=== PATIENT | female | born 1945 | race Caucasian/White ===

== ENCOUNTER 2018-09-18 00:44 | Emergency (ER) | payer MEDICARE, OTHER ==
[~2018-09-18] VITALS: Ht 152.4 cm; Wt 57.4 kg
[~2018-09-18 00:44] MED LIST: ALPR0.5T6 PO; AMLO10TA8 PO; AMLO2.5T5 PO; AMLO5TAB10 PO; APIX5TAB PO; ASPI-484 PO; BIOT1TAB2 PO; BUDE0.5A3 IH; BUSP10TA PO; CARV12.5 PO; CARV6.25 PO; CARV6.252 PO; CEPH-350 PO; CHOL2000 PO; CITA20TA6 PO; CLOP75TA PO; CYAN10005 PO; DULO30CA2 PO; FERR325T15 PO; FLUT1DIS5 IH; FURO-81 PO; FURO40TA4 PO; INSU100V13 SQ; INSU100V14 SQ; ISOS30TA4 PO; ISOS60TA2 PO; LANC-426 MC; LATA2.5D3 OP; LEVA1.25 IH; LOSA100T14 PO; LOSA1TAB7 PO; MAGN400T27 PO; METF500T PO; METO25TA4 PO; METR250T PO; MOME220A IH; NITR0.4T SL; PANT40TA5 PO; POTA20TA8 PO; PRAM0.125 PO; PRAM0.255 PO; PRED20TA PO; ROFL500T PO; ROSU10TA PO; SACU1TAB PO; SACU1TAB7 PO; SPIR25TA PO; TICA90TA PO; UMEC1DIS IH
[2018-09-18 00:48] VITALS: BP 156/68
--- NOTE | 2018-09-18 00:48 | NUR ---
HOME MEDICATIONS PT DOES NOT HAVE MEDICATION LIST NOR PILL BOTTLES. ATTEMPT TO REVIEW LIST IN COMPUTER, NEITHER PT NOR SPOUSE ABLE TO RECALL MEDICATIONS.
[2018-09-18] MEDS ORDERED: ZOFRAN IV STA (01:10)
[2018-09-18] MEDS ORDERED: NS 1000ML 1,000 ML STA (01:10)
[2018-09-18] MEDS ORDERED: NS 1000ML 1,000 ML ONE (01:14)
[2018-09-18] MEDS ORDERED: ZOFRAN ONE (01:14)
--- NOTE | 2018-09-18 01:14 | ER.PDOC ---
General Chief Complaint: Nausea,Vomiting,Diarrhea Stated Complaint: VOMITING Time seen by : 01:00 Source: patient Exam Limitations: no limitations History of Present Illness Initial Comments Pt with nausea, vomiting and diarrhea since 8 PM last night Severity/Quality: mild, cramping Abdominal Pain Onset Location: Generalized Abdomen Associated Symptoms (vomiting): freq vomitng Associated Symptoms (diarrhea): copious Allergies: Coded Allergies: prednisone (Verified Allergy, Unknown, 12/30/16) Home Meds Active Scripts Metformin Hcl (GLUCOPHAGE) 500 Mg Tablet, 500 MG PO BID for 30 Days Prov:RODERICK WILLARD MD 10/16/17 Budesonide (PULMICORT) 0.5 Mg/2 Ml Ampul.neb, 0.5 MG IH Q6HR PRN for SHORTNESS OF BREATH for 30 Days Prov:RODERICK WILLARD MD 10/16/17 Alprazolam (ALPRAZOLAM) 0.5 Mg Tablet, 1 MG PO HS PRN for anxiety for 30 Days, TABLET Prov:RODERICK WILLARD MD 10/16/17 Sacubitril/Valsartan (Entresto 49 mg-51 mg Tablet) 1 Each Tablet, 1 EACH PO BID for 30 Days, TABLET Prov:RODERICK WILLARD MD 10/16/17 Levalbuterol Hcl (LEVALBUTEROL CONCENTRATE) 1.25 Mg/0.5 Ml Vial.neb, 1.25 MG IH Q6HR PRN for SHORTNESS OF BREATH for 30 Days Prov:RODERICK WILLARD MD 10/16/17 Spironolactone 25MG (ALDACTONE 25MG) 25 Mg Tablet, 25 MG PO DAILY for 30 Days, TABLET Prov:RODERICK WILLARD MD 09/29/17 Isosorbide Mononitrate (ISOSORBIDE MONONITRATE ER) 30 Mg Tab.er.24h, 60 MG PO DAILY for 30 Days Prov:RODERICK WILLARD MD 09/29/17 Furosemide (LASIX) 20 Mg Tablet, 20 MG PO DAILY for 30 Days Prov:RODERICK WILLARD MD 06/11/17 Insulin Detemir (LEVEMIR) 100 Unit/1 Ml Vial, 30 UNIT SQ HS for 30 Days, VIAL Prov:RODERICK WILLARD MD 5/17/17 Lancets (ACCU-CHEK) 1 Each Each, 1 EACH ACHS for 30 Days, EACH Prov:RODERICK WILLARD MD 12/31/16 Reported Medications Pramipexole Di-Hcl (MIRAPEX) 0.125 Mg Tablet, 0.125 MG PO DAILY24, TABLET 05/18/18 Metoprolol Tartrate 25MG (LOPRESSER 25MG) 25 Mg Tablet, 1 TAB PO BID, #180 TAB 1 Refill 05/18/18 Apixaban (Eliquis) 5 Mg Tablet, 5 MG PO BID, TABLET 05/18/18 Roflumilast (DALIRESP) 500 Mcg Tablet, 1 TAB PO DAILY, #90 TAB 3 Refills 05/18/18 Latanoprost (LATANOPROST) 2.5 Ml Drops, 1 DROP OP HS, #7.5 MILLILITER 3 Refills 02/05/18 Clopidogrel Bisulfate (CLOPIDOGREL) 75 Mg Tablet, 1 TAB PO DAILY, #90 TAB 1 Refill 02/05/18 Citalopram Hydrobromide (CITALOPRAM HBR) 20 Mg Tablet, 1 TAB PO DAILY, #30 TAB 5 Refills 02/05/18 Mometasone Furoate (ASMANEX) 220 Mcg Aer.pow.ba, 220 MCG IH DAILY24 02/05/18 Cyanocobalamin (Vitamin B-12) (VITAMIN B-12) 1,000 Mcg Tablet, 1 TAB PO DAILY, # 30 TAB 2 Refills 12/31/16 Biotin (BIOTIN) 1 Mg Tablet, 1 MG PO TID, TABLET 12/31/16 Cholecalciferol (Vitamin D3) (VITAMIN D) 2,000 Unit Capsule, 4000 UNIT PO DAILY , CAPSULE 12/31/16 Potassium Chloride (KLOR-CON M20) 20 Meq Tab.er.prt, 20 MEQ PO DAILY 12/31/16 Rosuvastatin 10MG (CRESTOR 10MG) 10 Mg Tablet, 10 MG PO HS, TAB 12/30/16 Pantoprazole Sodium (PANTOPRAZOLE SODIUM) 40 Mg Tablet.dr, 40 MG PO DAILY 12/30/16 Nitroglycerin (NITROSTAT) 0.4 Mg Tab.subl, 0.4 MG SL PRN PRN for CHEST PAIN 12/30/16 Latanoprost (LATANOPROST) 2.5 Ml Drops, 1 DROP OP HS, #7.5 MILLILITER 12/30/16 Ferrous Sulfate (FERROUS SULFATE) 325 Mg Tablet, 325 TAB PO DAILY, TAB 12/30/16 Aspirin (ASPIR 81) 81 Mg Tablet.dr, 1 TAB PO DAILY, TAB 12/30/16 Umeclidinium Brm/Vilanterol Tr (Anoro Ellipta 62.5-25 Mcg INH) 1 Each Disk.w.dev , 1 EACH IH DAILY 12/30/16 Vital Signs First Vital Signs Date Time Temp Pulse Resp B/P (MAP) Pulse Ox O2 Delivery O2 Flow Rate FiO2 09/18/18 00:48 98.8 106 18 98.8 09/18/18 00:48 96 Nasal [place] 09/18/18 00:48 156/68 (97) 2.00 Last Vital Signs Date Time Temp Pulse Resp B/P (MAP) Pulse Ox O2 Delivery O2 Flow Rate FiO2 09/18/18 00:48 98.8 106 18 156/68 (97) 96 Nasal [place] 2.00 98.8 Past Medical History Medical History: arrhythmia, cancer, coronary artery disease, cardiac problems , congestive heart failure, COPD, diabetes, emphysema, GERD, high cholesterol, heart attack, hypertension, renal disease Surgical History: cardiac cath, cancer surgery, cholecystectomy, , hysterectomy, renal, stent LMP (females 10-50): hysterectomy Social History Smoking: quit greater than 1 year Alcohol Use: none Drug Use: none Constitutional: see HPI EENTM: no symptoms reported Respiratory: no symptoms reported Cardiovascular: no symptoms reported Gastrointestinal: see HPI Genitourinary: no symptoms reported Musculoskeletal: no symptoms reported Skin: no symptoms reported Psychiatric/Neurological: no symptoms reported Endocrine: no symptoms reported Hematologic/Lymphatic: no symptoms reported Physical Exam General Appearance: No Apparent Distress, WD/WN HEENT: PERRL/EOMI, Normal ENT Inspection, TMs Normal, Pharynx Normal Neck: Non-Tender, Full Range of Motion, Supple, Normal Inspection Respiratory: chest non-tender, lungs clear, normal breath sounds, no respiratory distress, no accessory muscle use Cardiovascular: Normal Peripheral Pulses, Regular Rate, Rhythm, No Edema, No Gallop, No JVD, No Murmur Gastrointestinal: Hyperactive bowel sounds, Soft Back: Normal Inspection, No CVA Tenderness, No Vertebral Tenderness Extremities: Normal Range of Motion, Non-Tender, Normal Inspection, No Pedal Edema, No Calf Tenderness, Normal Capillary Refill, Pelvis Stable Neurologic/Psychiatric: dean of boys II-XII NML as Tested, No Motor/Sensory Deficits, Alert, Normal Mood/Affect, Oriented x 3 Skin: Normal Color, Warm/Dry Lymphatic: No Adenopathy Results/Orders Results/Orders Laboratory Tests Test 09/18/18 01:10 09/18/18 01:20 09/18/18 01:30 Urine Collection Type CCMS Urine Color YELLOW (YELLOW) Urine Appearance CLOUDY (CLEAR) Urine Bilirubin NEGATIVE MG/DL (NEGATIVE) Urine Ketones 15 mg/dL (NEGATIVE) Urine Specific [place] 1.015 (1.005-1.035) Urine pH 6 (5.0-6.0) Urine Protein 100 mg/dL (NEGATIVE) Urine Urobilinogen NORMAL (NEGATIVE) Urine Nitrate NEGATIVE (NEGATIVE) Urine Leukocyte Esterase 500/uL 2+ (NEGATIVE) Urine Blood 50 2+ (NEGATIVE) Urine RBC NONE SEEN RBC/HPF (NONE Urine WBC TNTC WBC/HPF (0-2) Urine Squamous Epithelial Cells MODERATE #/HPF (FEW) Urine Bacteria FEW (NONE SEEN) Urine Other MUCUC 1+ #/HPF Urine Yeast MODERATE Urine Glucose 50 (NEGATIVE) White Blood Count 8.7 10^3/uL (4.5-11.0) Red Blood Count 3.87 10^6/uL (4.00-5.20) Hemoglobin 12.7 g/dL (12.0-15.0) Hematocrit 37.3 % (36.0-46.0) Mean Corpuscular Volume 96.4 fL (78-100) Mean Corpuscular Hemoglobin 32.8 pg (26-34) Mean Corpuscular Hemoglobin Concent 34.0 g/dL (33-37) Red Cell Distribution Width 14.7 % (11.5-14.5) Platelet Count 255 10^3/uL (150-400) Mean Platelet Volume 8.6 fL (7.8-11.0) Neutrophils (%) (Auto) 93.2 % (41.0-85.0) Lymphocytes (%) (Auto) 2.7 % (24.0-44.0) Monocytes (%) (Auto) 2.7 % (5.0-12.0) Neutrophils # (Auto) 8.1 10^3/uL (1.8-7.7) Lymphocytes # (Auto) 0.2 10^3/uL (1.0-4.8) Monocytes # (Auto) 0.2 10^3/uL (0.3-0.8) Absolute Immature Granulocyte (auto 0.06 10^3 u/L (0-2) Eosinophils % 0.6 % (0.0-5.0) Basophils % 0.1 % (0.0-0.2) Basophils # 0.0 10^3/uL (0.0-0.1) Eosinophil Count 0.1 10^3/uL (0.0-0.2) Sodium Level 138 mmol/L (132-145) Potassium Level 3.9 mmol/L (3.6-5.2) Chloride Level 101.0 mmol/L (96-109) Carbon Dioxide Level 28.5 mmol/L (20.0-32) Anion Gap 12.4 Blood Urea Nitrogen 19 mg/dL (7-18) Creatinine 0.90 mg/dL (0.59-1.40) Estimated GFR () 74.7 (>/=60) BUN/Creatinine Ratio 21.0 Glucose Level 238 mg/dL (70-110) Calcium Level 8.8 mg/dL (8.4-10.5) Total Bilirubin 0.6 mg/dL (0.2-1.0) Aspartate Amino Transf (AST/SGOT) 15 U/L (0-35) Alanine Aminotransferase (ALT/SGPT) 17 U/L (12-78) Alkaline Phosphatase 68 U/L (50-136) Troponin I < 0.02 ng/mL (0.00-0.05) Pro-B-Type Natriuretic Peptide 296 pg/mL (0-125) Total Protein 6.7 g/dL (6.4-8.2) Albumin 3.1 g/dL (3.4-5.0) Globulin 3.6 Amylase Level 86 U/L (25-115) Lipase 417 U/L (114-286) Percent Immature Gran (Cell Imm) 0.70 % (0.00-0.50) Differential Total Cells Counted 100 #CELLS Segmented Neutrophils 79 % (31-76) Band Neutrophils 17 % (2-6) Lymphocytes 5 % (25-36) Monocytes 3 % (3-9) Absolute Eosinophils (Manual) 2 % (1-4) Administered Medications Medications (Trade) Dose Ordered Sig/Dayanara Route PRN Reason Start Time Stop Time Status Last Admin Dose Admin Sodium Chloride 1,000 ml @ 500 mls/hr Q2H STAT IV 09/18/18 01:10 09/18/18 03:09 09/18/18 01:17 Ondansetron HCl (Zofran) 4 mg STAT STAT IV 09/18/18 01:10 09/18/18 01:12 DC 09/18/18 01:17 Departure Time of Disposition: 02:36 Disposition: 01 HOME, SELF-CARE Impression: Primary Impression: Nausea & vomiting Additional Impressions: Diarrhea Gastroenteritis UTI (urinary tract infection) Condition: Stable Patient Instructions: Clear Liquid Diet, Yjhs-le-[id number], Nausea and Vomiting, [id number], Viral Gastroenteritis, [id number] Referrals: RHONDA ALVAREZ MD (PCP) PRIMARY CARE PROVIDER Duration or Time Spent with Pa: 20 Problem Qualifiers ZAY SORIA MD Sep 18, 2018 01:14
--- NOTE | 2018-09-18 01:21 | PCM.EKG ---
Test Date: 2018-09-18 Test Time: 01:17:45 Pat Name: KATINA WATERMAN Department: Patient ID: [facility]-[id number] Room: Gender: F Impregnating Helper: [place] : 1945 Requested By: ZAY LOCKWOOD Order Number: [id number] Reading MD: Zay Lockwood Measurements Intervals [place] Rate: 105 P: 78 WI: 148 QRS: 17 QRSD: 130 T: 72 QT: 366 QTc: 483 Interpretive Statements Sinus tachycardia Left bundle branch block Abnormal ECG Electronically Signed On 09-18-2018 2:55:55 SHELL ASSEMBLER by Zay Lockwood Please click the below link to view image of tracing.
[2018-09-18 01:25] LABS: BASOPHIL % 0.1 % (0.0-0.2); EOSINOPHIL # 0.1 10^3/uL (0.0-0.2); EOSINOPHIL % 0.6 % (0.0-5.0); HEMOGLOBIN 12.7 g/dL (12.0-15.0); LYMPHOCYTES # 0.2 10^3/uL (1.0-4.8); LYMPHOCYTES % 2.7 % (24.0-44.0); MEAN CELL HGB 32.8 pg (26-34); MEAN CORP VOLUME 96.4 fL (78-100); MEAN PLATELET VOLUME 8.6 fL (7.8-11.0); MONOCYTES # 0.2 10^3/uL (0.3-0.8); MONOCYTES % 2.7 % (5.0-12.0); NEUTROPHIL # 8.1 10^3/uL (1.8-7.7); NEUTROPHILS % 93.2 % (41.0-85.0); RED CELL DISTRIBUTION WIDTH 14.7 % (11.5-14.5); WHITE BLOOD CELL 8.7 10^3/uL (4.5-11.0)
[2018-09-18 01:43] LABS: CARBON DIOXIDE 28.5 mmol/L (20.0-32)
[2018-09-18 01:44] LABS: CALCIUM 8.8 mg/dL (8.4-10.5)
[2018-09-18 01:45] VITALS: BP 126/66
[2018-09-18 02:00] LABS: BAND NEUTROPHILS 17 % (2-6); EOSINOPHIL 2 % (1-4); LYMPHOCYTE 5 % (25-36); MONOCYTE 3 % (3-9); SEGMENTED NEUTROPHILS 79 % (31-76)
--- NOTE | 2018-09-18 02:03 | NUR ---
RESTROOM PT AMBULATED TO RESTROOM WITH SBA X1 ON PORTABLE OXYGEN AT 2L/NC. PT TOLERATED WELL. ATTEMPT TO COLLECT UA AND STOOL SPECIMEN PER ORDERS
[2018-09-18 02:18] LABS: BILIRUBIN,URINE NEGATIVE (NEGATIVE); UROBILINOGEN,URINE NORMAL (NEGATIVE)
[2018-09-18 02:20] LABS: APPEARANCE,URINE CLOUDY (CLEAR); UA COLOR YELLOW (YELLOW)
[2018-09-18 02:31] LABS: YEAST,URINE MODERATE
[2018-09-18 02:45] VITALS: BP 143/59
[2018-09-18 03:02] VITALS: BP 143/59
== END 2018-09-18 02:50 | disposition home or self-care (01) ==
LOC: ER 00:44
DX: K52.9 Noninfective gastroenteritis and colitis, unspecified (principal); N39.0 Urinary tract infection, site not specified; I50.9 Heart failure, unspecified; J44.9 Chronic obstructive pulmonary disease, unspecified; I25.10 Atherosclerotic heart disease of native coronary artery without angina pectoris; I11.0 Hypertensive heart disease with heart failure; E78.00 Pure hypercholesterolemia, unspecified; E11.9 Type 2 diabetes mellitus without complications; K21.9 Gastro-esophageal reflux disease without esophagitis; Z79.01 Long term (current) use of anticoagulants; Z79.4 Long term (current) use of insulin; Z79.82 Long term (current) use of aspirin; Z79.899 Other long term (current) drug therapy; Z88.8 Allergy status to other drugs, medicaments and biological substances; Z90.49 Acquired absence of other specified parts of digestive tract; Z90.710 Acquired absence of both cervix and uterus; Z87.891 Personal history of nicotine dependence
CPT/HCPCS: 36415; 80053; 81000; 82150; 83690; 83880; 84484; 85025; 87086; 93005; 96361 ×2; 96374; 99284; J2405; J7030

== ENCOUNTER → 2018-10-04 | Outpatient (CLI) | payer MEDICARE, BC, OTHER ==
[2018-10-04 11:02] LABS: HEMOGLOBIN 11.7 g/dL (12.0-15.0); MEAN CELL HGB 31.5 pg (26-34); MEAN CELL HGB CONCENTRATION 32.3 g/dL (33-37); MEAN CORP VOLUME 97.6 fL (78-100); MEAN PLATELET VOLUME 7.9 fL (7.8-11.0)
--- NOTE | 2018-10-04 12:22 | DIREP ---
PROCEDURE:US KIDNEYS-BILAT COMPARISON:[facility], CT, CTA CHEST, 10/14/2017, 08:36 AM. [facility], CT, CT SPINE LUMBAR W/O, 03/12/2017, 03:37 PM. [facility], CT, CT CHEST W/O, 12/15/2017, 10:54 AM. INDICATIONS:N18.3 CHRONIC KIDNEY DISEASE STAGE 2, R94.4 ABN KIDNEY FUNCTION STUDY TECHNIQUE:Ultrasound examination was performed of the kidneys and bladder. FINDINGS: RIGHT KIDNEY:9.8 x 6.3 x 4.4 cm. Cortex: 1.0 cm LEFT KIDNEY:11.0 x 6.4 x 7.1 cm. Cortex: 1.9 cm BLADDER PRE VOID:13.2 x 9.8 x 7.6 cm. Volume: 687.7 ml BLADDER POST VOID:4.3 x 4.5 x 3.5 cm. Volume: 35.0 ml RIGHT KIDNEY: Normal. No hydronephrosis. A 1.7 x 1.6 cm stone is identified in the mid pole. A 3.1 x 2.4 x 2.0 cm cyst is identified in the superior pole. LEFT KIDNEY: Normal. No hydronephrosis. BLADDER:Normal. OTHER:Negative. CONCLUSION: 1. Right renal stone. No hydronephrosis. 2. Simple right renal cyst. Dictated by: RAÚL Physician on 10/04/2018 at 11:36 AM ld
== END | disposition home or self-care (01) ==
LOC: RAD 10:43
PROVIDERS: ATTEND Internal Medicine
DX: N20.0 Calculus of kidney (principal); N28.1 Cyst of kidney, acquired; I13.0 Hypertensive heart and chronic kidney disease with heart failure and stage 1 through stage 4 chronic kidney disease, or unspecified chronic kidney disease; N18.3 Chronic kidney disease, stage 3 (moderate); I50.42 Chronic combined systolic (congestive) and diastolic (congestive) heart failure; R94.4 Abnormal results of kidney function studies
CPT/HCPCS: 36415; 76770; 85027

== ENCOUNTER 2018-10-24 09:41 | Emergency (ER) | payer MEDICARE, OTHER ==
[~2018-10-24] VITALS: Ht 152.4 cm; Wt 53.5 kg
--- NOTE | 2018-10-24 09:45 | NUR ---
ARRIVAL PT ARRIVED AMBULATORY TO ED RM 6. PT C/O COUGHT, CONGESTION AND RUNNY NOSE FOR A WEKK AND A HALF. PT STATES DR. ALVAREZ PLACED HER ON A Z-PACK FOR GREEN SPUTUM. PT STATES SPUTUM IS NOT WHITE AND FOAMY. PT HAS EXTENSIVE HEART HISTORY WELL COPD, DM AND ANXIETY. PT HOOKED UP TO ALL MONITORS.
[2018-10-24 09:58] VITALS: BP 126/95
[2018-10-24] MEDS ORDERED: SOLU-MEDROL IM STA (10:04)
[2018-10-24] MEDS ORDERED: DUONEB 0.5 MG-3 MG/3 ML SOLN IH STA (10:04)
[2018-10-24] MEDS ORDERED: DECADRON IH STA (10:04)
--- NOTE | 2018-10-24 10:04 | ER.PDOC ---
General Chief Complaint: Requesting Medical Care Stated Complaint: COUGH/CONGESTION Time seen by MD: 09:50 Source: patient Exam Limitations: no limitations History of Present Illness Initial Comments Cough, congestion and runny nose for about 10 days, treated by PCP with Zithromax, clear expectoration Timing/Duration: gradual Severity: mild Associated Symptoms: runny nose, productive cough, mild SOB Prior symptoms/Treatment: Similar symptoms previous Allergies: Coded Allergies: prednisone (Verified Allergy, Unknown, 12/30/16) Home Meds Active Scripts Metformin Hcl (GLUCOPHAGE) 500 Mg Tablet, 500 MG PO BID for 30 Days Prov:RODERICK WILLARD MD 10/16/17 Budesonide (PULMICORT) 0.5 Mg/2 Ml Ampul.neb, 0.5 MG IH Q6HR PRN for SHORTNESS OF BREATH for 30 Days Prov:RODERICK WILLARD MD 10/16/17 Alprazolam (ALPRAZOLAM) 0.5 Mg Tablet, 1 MG PO HS PRN for anxiety for 30 Days, TABLET Prov:RODERICK WILLARD MD 10/16/17 Sacubitril/Valsartan (Entresto 49 mg-51 mg Tablet) 1 Each Tablet, 1 EACH PO BID for 30 Days, TABLET Prov:RODERICK WILLARD MD 10/16/17 Levalbuterol Hcl (LEVALBUTEROL CONCENTRATE) 1.25 Mg/0.5 Ml Vial.neb, 1.25 MG IH Q6HR PRN for SHORTNESS OF BREATH for 30 Days Prov:RODERICK WILLARD MD 10/16/17 Spironolactone 25MG (ALDACTONE 25MG) 25 Mg Tablet, 25 MG PO DAILY for 30 Days, TABLET Prov:RODERICK WILLARD MD 09/29/17 Isosorbide Mononitrate (ISOSORBIDE MONONITRATE ER) 30 Mg Tab.er.24h, 60 MG PO DAILY for 30 Days Prov:RODERICK WILLARD MD 09/29/17 Furosemide (LASIX) 20 Mg Tablet, 20 MG PO DAILY for 30 Days Prov:RODERICK WILLARD MD 06/11/17 Insulin Detemir (LEVEMIR) 100 Unit/1 Ml Vial, 30 UNIT SQ HS for 30 Days, VIAL Prov:RODERICK WILLARD MD 12/31/16 Lancets (ACCU-CHEK) 1 Each Each, 1 EACH [facility] for 30 Days, EACH Prov:RODERICK WILLARD MD 12/31/16 Reported Medications Pramipexole Di-Hcl (MIRAPEX) 0.125 Mg Tablet, 0.125 MG PO DAILY24, TABLET 05/18/18 Metoprolol Tartrate 25MG (LOPRESSER 25MG) 25 Mg Tablet, 1 TAB PO BID, #180 TAB 1 Refill 05/18/18 Apixaban (Eliquis) 5 Mg Tablet, 5 MG PO BID, TABLET 05/18/18 Roflumilast (DALIRESP) 500 Mcg Tablet, 1 TAB PO DAILY, #90 TAB 3 Refills 05/18/18 Latanoprost (LATANOPROST) 2.5 Ml Drops, 1 DROP OP HS, #7.5 MILLILITER 3 Refills 02/05/18 Clopidogrel Bisulfate (CLOPIDOGREL) 75 Mg Tablet, 1 TAB PO DAILY, #90 TAB 1 Refill 02/05/18 Citalopram Hydrobromide (CITALOPRAM HBR) 20 Mg Tablet, 1 TAB PO DAILY, #30 TAB 5 Refills 02/05/18 Mometasone Furoate (ASMANEX) 220 Mcg Aer.pow.ba, 220 MCG IH DAILY24 02/05/18 Cyanocobalamin (Vitamin B-12) (VITAMIN B-12) 1,000 Mcg Tablet, 1 TAB PO DAILY, # 30 TAB 2 Refills 12/31/16 Biotin (BIOTIN) 1 Mg Tablet, 1 MG PO TID, TABLET 12/31/16 Cholecalciferol (Vitamin D3) (VITAMIN D) 2,000 Unit Capsule, 4000 UNIT PO DAILY , CAPSULE 12/31/16 Potassium Chloride (KLOR-CON M20) 20 Meq Tab.er.prt, 20 MEQ PO DAILY 12/31/16 Rosuvastatin 10MG (CRESTOR 10MG) 10 Mg Tablet, 10 MG PO HS, TAB 12/30/16 Pantoprazole Sodium (PANTOPRAZOLE SODIUM) 40 Mg Tablet.dr, 40 MG PO DAILY 12/30/16 Nitroglycerin (NITROSTAT) 0.4 Mg Tab.subl, 0.4 MG SL PRN PRN for CHEST PAIN 12/30/16 Latanoprost (LATANOPROST) 2.5 Ml Drops, 1 DROP OP HS, #7.5 MILLILITER 12/30/16 Ferrous Sulfate (FERROUS SULFATE) 325 Mg Tablet, 325 TAB PO DAILY, TAB 12/30/16 Aspirin (ASPIR 81) 81 Mg Tablet.dr, 1 TAB PO DAILY, TAB 12/30/16 Umeclidinium Brm/Vilanterol Tr (Anoro Ellipta 62.5-25 Mcg INH) 1 Each Disk.w.dev , 1 EACH IH DAILY 12/30/16 Constitutional: see HPI EENTM: see HPI Respiratory: see HPI Cardiovascular: no symptoms reported Gastrointestinal: no symptoms reported Genitourinary: no symptoms reported Musculoskeletal: no symptoms reported Skin: no symptoms reported Psychiatric/Neurological: no symptoms reported Endocrine: no symptoms reported Hematologic/Lymphatic: no symptoms reported Past Medical History Surgical History: cardiac cath, cancer surgery, cholecystectomy, , hysterectomy, renal, stent Social History Drug Use: none Physical Exam General Appearance: alert, no distress Eye: eyes nml inspection, lids & conjunct. nml, PERRL, no nystagmus Ear: ear nml Nose: rhinorrhea, mucosal edema Throat: pharynx nml, airway nml Neck: nml inspection, supple Respiratory: no resp.distress, rhonchi (scattered) Abdomen: non-tender, no organomegaly CVS: reg rate & rhythm, heart sounds nml Skin: color nml, no rash, warm/dry Extremities: non-tender, nml ROM, no pedal edema NEURO/PSYCH: oriented x 3, CN's nml as tested, motor nml, sensation nml, mood/ affect nml Results/Orders Results/Orders Laboratory Tests Test 10/24/18 10:10 10/24/18 10:15 White Blood Count 7.0 10^3/uL (4.5-11.0) Red Blood Count 3.88 10^6/uL (4.00-5.20) Hemoglobin 12.5 g/dL (12.0-15.0) Hematocrit 37.0 % (36.0-46.0) Mean Corpuscular Volume 95.4 fL (78-100) Mean Corpuscular Hemoglobin 32.2 pg (26-34) Mean Corpuscular Hemoglobin Concent 33.8 g/dL (33-37) Red Cell Distribution Width 15.4 % (11.5-14.5) Platelet Count 329 10^3/uL (150-400) Mean Platelet Volume 8.4 fL (7.8-11.0) Neutrophils (%) (Auto) 73.9 % (41.0-85.0) Lymphocytes (%) (Auto) 13.2 % (24.0-44.0) Monocytes (%) (Auto) 11.1 % (5.0-12.0) Neutrophils # (Auto) 5.1 10^3/uL (1.8-7.7) Lymphocytes # (Auto) 0.9 10^3/uL (1.0-4.8) Monocytes # (Auto) 0.8 10^3/uL (0.3-0.8) Absolute Immature Granulocyte (auto 0.03 10^3 u/L (0-2) Eosinophils % 1.0 % (0.0-5.0) Basophils % 0.4 % (0.0-0.2) Basophils # 0.0 10^3/uL (0.0-0.1) Eosinophil Count 0.1 10^3/uL (0.0-0.2) Prothrombin Time 10.7 SEC (9.8-11.9) Prothrombin Time INR (Non-Therap) 1.1 Activated Partial Thromboplast Time 29.2 SEC (24.67-30.72) Sodium Level 140 mmol/L (132-145) Potassium Level 4.3 mmol/L (3.6-5.2) Chloride Level 101.0 mmol/L (96-109) Carbon Dioxide Level 26.4 mmol/L (20.0-32) Anion Gap 16.9 Blood Urea Nitrogen 10 mg/dL (7-18) Creatinine 0.87 mg/dL (0.59-1.40) Estimated GFR () 77.7 (>/=60) BUN/Creatinine Ratio 11.0 Glucose Level 143 mg/dL (70-110) Calcium Level 9.9 mg/dL (8.4-10.5) Total Bilirubin 0.5 mg/dL (0.2-1.0) Aspartate Amino Transf (AST/SGOT) 15 U/L (0-35) Alanine Aminotransferase (ALT/SGPT) 17 U/L (12-78) Alkaline Phosphatase 66 U/L (50-136) Total Creatine Kinase 23 U/L (26-192) Troponin I < 0.02 ng/mL (0.00-0.05) Pro-B-Type Natriuretic Peptide 171 pg/mL (0-125) Total Protein 7.3 g/dL (6.4-8.2) Albumin 3.4 g/dL (3.4-5.0) Globulin 3.9 Percent Immature Gran (Cell Imm) 0.40 % (0.00-0.50) Influenza Type A Antigen NEGATIVE (NEG) Influenza B Immunofluorescence NEGATIVE (NEG) Group A Streptococcus Screen NEGATIVE (NEGATIVE) Administered Medications Medications (Trade) Dose Ordered Sig/Dayanara Route PRN Reason Start Time Stop Time Status Last Admin Dose Admin Albuterol/ Ipratropium (Duoneb 0.5 Mg-3 Mg/3 ml Soln) 3 ml STAT STAT IH 10/24/18 10:04 10/24/18 10:08 DC 10/24/18 10:25 Dexamethasone Sodium Phosphate (Decadron) 4 mg STAT STAT IH 10/24/18 10:04 10/24/18 10:08 DC 10/24/18 10:25 Methylprednisolone Sodium Succinate (Solu-Medrol) 125 mg STAT STAT IM 10/24/18 10:04 10/24/18 10:08 DC 10/24/18 10:34 Departure Time of Disposition: 10:56 Disposition: 01 HOME, SELF-CARE Impression: Primary Impression: COPD exacerbation Condition: Stable Patient Instructions: Chronic Obstructive Pulmonary Disease Exacerbation, Easy- to-Read Referrals: RHONDA ALVAREZ MD (PCP) PRIMARY CARE PROVIDER Duration or Time Spent with Pa: ZAY HITCHCOCK MD Oct 24, 2018 10:04
[2018-10-24] MEDS ORDERED: SOLU-MEDROL ONE (10:10)
[2018-10-24] MEDS ORDERED: DECADRON ONE (10:16)
[2018-10-24 10:19] LABS: BASOPHIL % 0.4 % (0.0-0.2); EOSINOPHIL # 0.1 10^3/uL (0.0-0.2); HEMOGLOBIN 12.5 g/dL (12.0-15.0); LYMPHOCYTES # 0.9 10^3/uL (1.0-4.8); LYMPHOCYTES % 13.2 % (24.0-44.0); MEAN CELL HGB 32.2 pg (26-34); MEAN CELL HGB CONCENTRATION 33.8 g/dL (33-37); MEAN CORP VOLUME 95.4 fL (78-100); MEAN PLATELET VOLUME 8.4 fL (7.8-11.0); MONOCYTES # 0.8 10^3/uL (0.3-0.8); MONOCYTES % 11.1 % (5.0-12.0); NEUTROPHIL # 5.1 10^3/uL (1.8-7.7); NEUTROPHILS % 73.9 % (41.0-85.0); RED CELL DISTRIBUTION WIDTH 15.4 % (11.5-14.5)
[2018-10-24] MEDS ORDERED: DUONEB 0.5 MG-3 MG/3 ML SOLN IH ONE (10:20)
--- NOTE | 2018-10-24 10:22 | PCM.EKG ---
[facility] Test Date: 2018-10-24 Test Time: 10:19:31 Pat Name: KATINA WATERMAN Department: [id number] Room: Gender: F Dental Billing Specialist: ANA LUISA : 1945 Requested By: VINCENT LOCKWOOD Order Number: [id number] Reading MD: Vincent Lockwood Measurements Intervals [place] Rate: 66 P: 74 PA: 140 QRS: 17 QRSD: 138 T: 26 QT: 432 QTc: 452 Interpretive Statements Normal sinus rhythm Left bundle branch block Abnormal ECG Compared to ECG 09/18/2018 01:17:45 Sinus tachycardia no longer present Electronically Signed On 10-24-2018 13:04:29 CDT by Vincent Lockwood Please click the below link to view image of tracing.
[2018-10-24 10:40] LABS: STREP SCREEN NEGATIVE (NEGATIVE)
[2018-10-24 10:43] LABS: ALANINE AMINOTRANSFERASE(ML) 17 U/L (12-78); ALKALINE PHOSPHATASE 66 U/L (50-136); ASPARTATE AMINO TRANSFERASE 15 U/L (0-35); CALCIUM 9.9 mg/dL (8.4-10.5); CARBON DIOXIDE 26.4 mmol/L (20.0-32); GLUCOSE 143 mg/dL (70-110)
--- NOTE | 2018-10-24 10:44 | DIREP ---
PROCEDURE:CHEST 1 VIEW COMPARISON:[facility], CR, XRAY CHEST SINGLE VW, 05/17/2018, 10:56 PM. INDICATIONS:Cough, congestion FINDINGS: LUNGS/PLEURA:No significant pulmonary parenchymal abnormalities. No effusions. VASCULATURE:Normal. Unremarkable pulmonary vasculature. CARDIAC:Normal. No cardiac silhouette abnormality or cardiomegaly. MEDIASTINUM:Atherosclerotic aorta with no visible aneurysm. BONES:Normal. No fracture or visible bony lesion. OTHER:Negative. CONCLUSION:No acute disease. Dictated by: Florencio Watkins MD on 10/24/2018 at 10:43 AM
[2018-10-24 11:09] VITALS: BP 121/60
[2018-10-24 11:10] VITALS: BP 126/60
== END 2018-10-24 11:10 | disposition home or self-care (01) ==
LOC: ER 09:41
DX: J44.1 Chronic obstructive pulmonary disease with (acute) exacerbation (principal); Z79.01 Long term (current) use of anticoagulants; Z79.4 Long term (current) use of insulin; Z79.82 Long term (current) use of aspirin; Z79.899 Other long term (current) drug therapy; Z88.8 Allergy status to other drugs, medicaments and biological substances; Z90.49 Acquired absence of other specified parts of digestive tract; Z90.710 Acquired absence of both cervix and uterus
CPT/HCPCS: 36415; 71045; 80053; 82550; 83880; 84484; 85025; 85610; 85730; 87070; 87804 ×2; 87880; 93005; 94640; 96372; 99284; J1100; J2930; J7620

== ENCOUNTER 2018-12-02 17:35 | Emergency (ER) | payer MEDICARE, BC ==
[~2018-12-02] VITALS: Ht 152.4 cm; Wt 55.8 kg
[~2018-12-02 17:35] MED LIST changes: -ROSU10TA PO; +ROSU10TA2 PO
--- NOTE | 2018-12-02 17:42 | NUR ---
ARRIVAL PT ARRIVED AMBULATORY TO ER 2 C/O "IRREGULAR HEARTBEAT". PT REFUSED WHEELCHAIR TRANSPORT. PT STATES HAD WATCHMAN PROCEDURE LAST WEEK IN [place]. PT STATES "I FEEL LIKE MY HEARTBEAT IS IRREGULAR". PT STATES CALLED DR GARCIA'S OFFICE AND WAS TOLD TO COME TO ER FOR EKG AND TO BE EVALUATED. PT PLACED ON SKIVER HAND. NO ACUTE DISTRESS NOTED. EDP NOTIFIED OF PT ARRIVAL.
[2018-12-02] MEDS ORDERED: DECADRON IH STA (17:54)
[2018-12-02] MEDS ORDERED: DUONEB 0.5 MG-3 MG/3 ML SOLN IH STA (17:54)
[2018-12-02 17:55] VITALS: BP 154/69
--- NOTE | 2018-12-02 18:03 | PCM.EKG ---
[facility] Test Date: 2018-12-02 Test Time: 18:01:20 Pat Name: KATINA WATERMAN [facility]: [id number] Room: Gender: F Card Player: : 1945 Requested By: TUAN URBIO Order Number: [id number] Reading MD: Tuan Rubio Measurements Intervals [place] Rate: 70 P: 58 MO: 136 QRS: -9 QRSD: 128 T: 64 QT: 426 QTc: 460 Interpretive Statements Sinus rhythm with fusion complexes Left bundle branch block Abnormal ECG Compared to ECG 10/24/2018 10:19:31 Fusion complex(es) now present Electronically Signed On 12-02-2018 18:17:20 CDT by Tuan Rubio Please click the below link to view image of tracing.
[2018-12-02 18:12] LABS: BASOPHIL % 0.3 % (0.0-0.2); EOSINOPHIL # 0.1 10^3/uL (0.0-0.2); EOSINOPHIL % 0.8 % (0.0-5.0); HEMOGLOBIN 11.5 g/dL (12.0-15.0); LYMPHOCYTES # 2.2 10^3/uL (1.0-4.8); LYMPHOCYTES % 29.6 % (24.0-44.0); MEAN CELL HGB CONCENTRATION 33.4 g/dL (33-37); MEAN CORP VOLUME 95.8 fL (78-100); MEAN PLATELET VOLUME 8.5 fL (7.8-11.0); MONOCYTES # 0.7 10^3/uL (0.3-0.8); MONOCYTES % 8.9 % (5.0-12.0); NEUTROPHIL # 4.5 10^3/uL (1.8-7.7); NEUTROPHILS % 60.1 % (41.0-85.0); RED CELL DISTRIBUTION WIDTH 15.4 % (11.5-14.5); WHITE BLOOD CELL 7.5 10^3/uL (4.5-11.0)
--- NOTE | 2018-12-02 18:19 | ER.PDOC ---
General Chief Complaint: Palpitations Stated Complaint: IRREGULAR HEARTBEAT/dyspnea,cough Time seen by MD: 19:00 Source: patient Exam Limitations: no limitations History of Present Illness Timing/Duration: 24 hours Severity: mild Activities at Onset: activity/exertion Prior Episodes/Possible Cause: occasional episodes Modifying Factors: improves with activity, improves with albuterol inhaler, improves with coughing, improves with rest Associated Symptoms: cough, lightheadedness, weakness, wheezing Prior symptoms/Treatment: Similar symptoms previous, Recenly Seen, Treated by Doctor Allergies: Coded Allergies: prednisone (Verified Allergy, Unknown, 12/30/16) Home Meds Active Scripts Metformin Hcl (GLUCOPHAGE) 500 Mg Tablet, 500 MG PO BID for 30 Days Prov:RODERICK WILLARD MD 10/16/17 Budesonide (PULMICORT) 0.5 Mg/2 Ml Ampul.neb, 0.5 MG IH Q6HR PRN for SHORTNESS OF BREATH for 30 Days Prov:RODERICK WILLARD MD 10/16/17 Alprazolam (ALPRAZOLAM) 0.5 Mg Tablet, 1 MG PO HS PRN for anxiety for 30 Days, TABLET Prov:RODERICK WILLARD MD 10/16/17 Sacubitril/Valsartan (Entresto 49 mg-51 mg Tablet) 1 Each Tablet, 1 EACH PO BID for 30 Days, TABLET Prov:RODERICK WILLARD MD 10/16/17 Levalbuterol Hcl (LEVALBUTEROL CONCENTRATE) 1.25 Mg/0.5 Ml Vial.neb, 1.25 MG IH Q6HR PRN for SHORTNESS OF BREATH for 30 Days Prov:RODERICK WILLARD MD 10/16/17 Spironolactone 25MG (ALDACTONE 25MG) 25 Mg Tablet, 25 MG PO DAILY for 30 Days, TABLET Prov:RODERICK WILLARD MD 09/29/17 Isosorbide Mononitrate (ISOSORBIDE MONONITRATE ER) 30 Mg Tab.er.24h, 60 MG PO DAILY for 30 Days Prov:RODERICK WILLARD MD 09/29/17 Furosemide (LASIX) 20 Mg Tablet, 20 MG PO DAILY for 30 Days Prov:RODERICK WILLARD MD 06/11/17 Insulin Detemir (LEVEMIR) 100 Unit/1 Ml Vial, 30 UNIT SQ HS for 30 Days, VIAL Prov:RODERICK WILLARD MD 12/31/16 Lancets (ACCU-CHEK) 1 Each Each, 1 EACH ACHS for 30 Days, EACH Prov:RODERICK WILLARD MD 12/31/16 Reported Medications Pramipexole Di-Hcl (MIRAPEX) 0.125 Mg Tablet, 0.125 MG PO DAILY24, TABLET 05/18/18 Metoprolol Tartrate 25MG (LOPRESSER 25MG) 25 Mg Tablet, 1 TAB PO BID, #180 TAB 1 Refill 05/18/18 Apixaban (Eliquis) 5 Mg Tablet, 5 MG PO BID, TABLET 05/18/18 Roflumilast (DALIRESP) 500 Mcg Tablet, 1 TAB PO DAILY, #90 TAB 3 Refills 05/18/18 Latanoprost (LATANOPROST) 2.5 Ml Drops, 1 DROP OP HS, #7.5 MILLILITER 3 Refills 02/05/18 Clopidogrel Bisulfate (CLOPIDOGREL) 75 Mg Tablet, 1 TAB PO DAILY, #90 TAB 1 Refill 02/05/18 Citalopram Hydrobromide (CITALOPRAM HBR) 20 Mg Tablet, 1 TAB PO DAILY, #30 TAB 5 Refills 02/05/18 Mometasone Furoate (ASMANEX) 220 Mcg Aer.pow.ba, 220 MCG IH DAILY24 02/05/18 Cyanocobalamin (Vitamin B-12) (VITAMIN B-12) 1,000 Mcg Tablet, 1 TAB PO DAILY, # 30 TAB 2 Refills 12/31/16 Biotin (BIOTIN) 1 Mg Tablet, 1 MG PO TID, TABLET 12/31/16 Cholecalciferol (Vitamin D3) (VITAMIN D) 2,000 Unit Capsule, 4000 UNIT PO DAILY , CAPSULE 12/31/16 Potassium Chloride (KLOR-CON M20) 20 Meq Tab.er.prt, 20 MEQ PO DAILY 12/31/16 Rosuvastatin 10MG (CRESTOR 10MG) 10 Mg Tablet, 10 MG PO HS, TAB 12/30/16 Pantoprazole Sodium (PANTOPRAZOLE SODIUM) 40 Mg Tablet.dr, 40 MG PO DAILY 12/30/16 Nitroglycerin (NITROSTAT) 0.4 Mg Tab.subl, 0.4 MG SL PRN PRN for CHEST PAIN 12/30/16 Latanoprost (LATANOPROST) 2.5 Ml Drops, 1 DROP OP HS, #7.5 MILLILITER 12/30/16 Ferrous Sulfate (FERROUS SULFATE) 325 Mg Tablet, 325 TAB PO DAILY, TAB 12/30/16 Aspirin (ASPIR 81) 81 Mg Tablet.dr, 1 TAB PO DAILY, TAB 12/30/16 Umeclidinium Brm/Vilanterol Tr (Anoro Ellipta 62.5-25 Mcg INH) 1 Each Disk.w.dev , 1 EACH IH DAILY 12/30/16 Past Medical History Medical History: arrhythmia, cancer, cardiac problems, congestive heart failure , COPD, diabetes Surgical History: cardiac cath, cholecystectomy, , hysterectomy, stent , other LMP (females 10-50): postmenopause Social History Smoking: non-smoker, quit greater than 1 year Alcohol Use: none Drug Use: none Reviewed Nursing Reviewed: Vital Signs, Abn. Noted Review of Systems All Other Systems: Reviewed and Negative Physical Exam General Appearance: No Apparent Distress, WD/WN HEENT: PERRL/EOMI, Normal ENT Inspection, TMs Normal, Pharynx Normal Neck: Non-Tender, Full Range of Motion, Supple, Normal Inspection Respiratory: chest non-tender, lungs clear, normal breath sounds, no respiratory distress, no accessory muscle use Cardiovascular: Normal Peripheral Pulses, Regular Rate, Rhythm, No Edema, No Gallop, No JVD, No Murmur Gastrointestinal: Normal Bowel Sounds, No Organomegaly, No Pulsatile Mass, Non Tender, Soft Extremities: Normal Range of Motion, Non-Tender, Normal Inspection, No Pedal Edema, No Calf Tenderness, Normal Capillary Refill Neurologic/Psychiatric: batch dumper II-XII NML as Tested, No Motor/Sensory Deficits, Alert, Normal Mood/Affect, Oriented x 3 Skin: Normal Color, Warm/Dry Lymphatic: No Adenopathy Results/Orders Results/Orders Orders - LAVON BETH MD Cbc With Auto Diff (12/02/18 17:52) Comprehensive Metabolic Panel (12/02/18 17:52) Creatine Kinase (12/02/18 17:52) Troponin I (12/02/18 17:52) Probnp B-Type Silverware Buffing Machine Operator (12/02/18 17:52) PT (12/02/18 17:52) Partial Thromboplastin Time. (4/18/19 17:52) Helicobacter Pylori (12/02/18 17:52) D-Dimer (12/02/18 17:52) Ekg-Routine (12/02/18 17:52) Xr Chest 2v (12/02/18 17:52) Ipratropium/Albuterol Sulfate (Duoneb 0. (12/02/18 17:54) Dexamethasone Sod Phosphate (Decadron) (12/02/18 17:54) Ipratropium/Albuterol Sulfate (Duoneb 0. (12/02/18 18:27) Dexamethasone Sod Phosphate (Decadron) (12/02/18 18:27) Vital Signs Date Time Temp Pulse Resp B/P (MAP) Pulse Ox O2 Delivery O2 Flow Rate FiO2 12/02/18 18:33 66 18 93 12/02/18 17:55 97.9 67 17 154/69 (97) 95 Room Air 97.9 12/02/18 17:42 97.9 67 17 97.9 12/02/18 17:42 97.9 67 17 95 Room Air 97.9 10/24/18 11:10 80 Administered Medications Medications (Trade) Dose Ordered Sig/Daynaara Route PRN Reason Start Time Stop Time Status Last Admin Dose Admin Albuterol/ Ipratropium (Duoneb 0.5 Mg-3 Mg/3 ml Soln) 3 ml STAT STAT IH 12/02/18 17:54 12/02/18 17:55 DC 12/02/18 18:38 3 ML Dexamethasone Sodium Phosphate (Decadron) 4 mg STAT STAT IH 12/02/18 17:54 12/02/18 17:55 DC 12/02/18 18:38 4 MG Laboratory Tests Test 12/02/18 18:02 White Blood Count 7.5 10^3/uL (4.5-11.0) Red Blood Count 3.59 10^6/uL (4.00-5.20) L Hemoglobin 11.5 g/dL (12.0-15.0) L Hematocrit 34.4 % (36.0-46.0) L Mean Corpuscular Volume 95.8 fL (78-100) Mean Corpuscular Hemoglobin 32.0 pg (26-34) Mean Corpuscular Hemoglobin Concent 33.4 g/dL (33-37) Red Cell Distribution Width 15.4 % (11.5-14.5) H Platelet Count 295 10^3/uL (150-400) Mean Platelet Volume 8.5 fL (7.8-11.0) Neutrophils (%) (Auto) 60.1 % (41.0-85.0) Lymphocytes (%) (Auto) 29.6 % (24.0-44.0) Monocytes (%) (Auto) 8.9 % (5.0-12.0) Neutrophils # (Auto) 4.5 10^3/uL (1.8-7.7) Lymphocytes # (Auto) 2.2 10^3/uL (1.0-4.8) Monocytes # (Auto) 0.7 10^3/uL (0.3-0.8) Absolute Immature Granulocyte (auto 0.02 10^3 u/L (0-2) Eosinophils % 0.8 % (0.0-5.0) Basophils % 0.3 % (0.0-0.2) H Basophils # 0.0 10^3/uL (0.0-0.1) Eosinophil Count 0.1 10^3/uL (0.0-0.2) Prothrombin Time 10.4 SEC (9.8-11.9) Prothrombin Time INR (Non-Therap) 1.0 PTT 28.7 SEC (24.67-30.72) D-Dimer 0.45 mg/L (0.19-0.49) Sodium Level 139 mmol/L (132-145) Potassium Level 3.9 mmol/L (3.6-5.2) Chloride Level 102.0 mmol/L (96-109) Carbon Dioxide Level 27.8 mmol/L (20.0-32) Anion Gap 13.1 Blood Urea Nitrogen 15 mg/dL (7-18) Creatinine 0.96 mg/dL (0.59-1.40) Estimated GFR () 69.3 (>/=60) BUN/Creatinine Ratio 15.0 Glucose Level 97 mg/dL (70-110) Calcium Level 9.2 mg/dL (8.4-10.5) Total Bilirubin 0.3 mg/dL (0.2-1.0) Aspartate Amino Transferase (AST) 10 U/L (0-35) Alanine Aminotransferase (ALT) 13 U/L (12-78) Alkaline Phosphatase 55 U/L (50-136) Total Creatine Kinase 26 U/L (26-192) Troponin I < 0.02 ng/mL (0.00-0.05) Pro-B-Type Natriuretic Peptide 568 pg/mL (0-125) H Total Protein 6.8 g/dL (6.4-8.2) Albumin 3.6 g/dL (3.4-5.0) Globulin 3.2 Percent Immature Gran (Cell Imm) 0.30 % (0.00-0.50) Helicobacter pylori Screen NEGATIVE (NEGATIVE) EKG/XRAY/CT/US EKG: NSR, LBBB Course Sepsis Screening Results: Posi: POSITIVE SEPSIS RISK Sepsis Qualifier/Stage: NO DEFINITE RISK Duration or Total Time Spent w: 15 Vitals & review Data Vital Sign - Last 24 Hours 10/24/18 12/02/18 12/02/18 12/02/18 11:10 17:42 17:42 17:55 Temp 97.9 97.9 97.9 97.9 97.9 97.9 Pulse 80 67 67 67 Resp 17 17 17 B/P (MAP) 154/69 (97) Pulse Ox 95 95 O2 Delivery Room Air Room Air 12/02/18 18:33 Pulse 66 Resp 18 Pulse Ox 93 Laboratory Tests Test 12/02/18 18:02 White Blood Count 7.5 10^3/uL Red Blood Count 3.59 10^6/uL Hemoglobin 11.5 g/dL Hematocrit 34.4 % Mean Corpuscular Volume 95.8 fL Mean Corpuscular Hemoglobin 32.0 pg Mean Corpuscular Hemoglobin Concent 33.4 g/dL Red Cell Distribution Width 15.4 % Platelet Count 295 10^3/uL Mean Platelet Volume 8.5 fL Neutrophils (%) (Auto) 60.1 % Lymphocytes (%) (Auto) 29.6 % Monocytes (%) (Auto) 8.9 % Neutrophils # (Auto) 4.5 10^3/uL Lymphocytes # (Auto) 2.2 10^3/uL Monocytes # (Auto) 0.7 10^3/uL Absolute Immature Granulocyte (auto 0.02 10^3 u/L Eosinophils % 0.8 % Basophils % 0.3 % Basophils # 0.0 10^3/uL Eosinophil Count 0.1 10^3/uL Prothrombin Time 10.4 SEC Prothrombin Time INR (Non-Therap) 1.0 Activated Partial Thromboplast Time 28.7 SEC D-Dimer 0.45 mg/L Sodium Level 139 mmol/L Potassium Level 3.9 mmol/L Chloride Level 102.0 mmol/L Carbon Dioxide Level 27.8 mmol/L Anion Gap 13.1 Blood Urea Nitrogen 15 mg/dL Creatinine 0.96 mg/dL Estimated GFR () 69.3 BUN/Creatinine Ratio 15.0 Glucose Level 97 mg/dL Calcium Level 9.2 mg/dL Total Bilirubin 0.3 mg/dL Aspartate Amino Transf (AST/SGOT) 10 U/L Alanine Aminotransferase (ALT/SGPT) 13 U/L Alkaline Phosphatase 55 U/L Total Creatine Kinase 26 U/L Troponin I < 0.02 ng/mL Pro-B-Type Natriuretic Peptide 568 pg/mL Total Protein 6.8 g/dL Albumin 3.6 g/dL Globulin 3.2 Percent Immature Gran (Cell Imm) 0.30 % Helicobacter pylori Screen NEGATIVE Sepsis Infection Criteria Pres: None LEVEL 1 SEPSIS INFECTION CRITE: None/Not assessed LEVEL 2-SIRS (LIST ALL THAT AP: None/Not assessed Cardiovascular Evidence: Not Assessed or None Hematologic Evidence: None/Not assessed Hepatic Evidence: None/Not assessed Metabolic Evidence: None/Not assessed Neurological Evidence: None/Not assessed Respiratory Evidence: Need for O2 to keep>90%, O2 SAT<90room air Renal Evidence: None/Not assessed O2 Sat by Pulse Oximetry: 95 Departure Time of Disposition: 19:00 Disposition: 01 HOME, SELF-CARE Impression: Primary Impression: Palpitations Additional Impression: COPD (chronic obstructive pulmonary disease) Condition: Improved Referrals: RHONDA ALVAREZ MD (PCP) PRIMARY CARE PROVIDER Comments CALL DR MEYER NEXT THURSDAY Duration or Time Spent with Pa: 2 hrs Problem Qualifiers LAVON BETH MD Dec 02, 2018 18:19
[2018-12-02] MEDS ORDERED: DUONEB 0.5 MG-3 MG/3 ML SOLN IH ONE (18:27)
[2018-12-02] MEDS ORDERED: DECADRON ONE (18:27)
[2018-12-02 18:33] VITALS: BP 138/61
[2018-12-02 18:40] LABS: ALANINE AMINOTRANSFERASE(ML) 13 U/L (12-78); ALKALINE PHOSPHATASE 55 U/L (50-136); ASPARTATE AMINO TRANSFERASE 10 U/L (0-35); CALCIUM 9.2 mg/dL (8.4-10.5); CARBON DIOXIDE 27.8 mmol/L (20.0-32); GLUCOSE 97 mg/dL (70-110)
[2018-12-02 19:03] VITALS: BP 162/88
--- NOTE | 2018-12-02 19:04 | DIREP ---
PROCEDURE:CHEST 2 VIEWS COMPARISON:[facility], CR, XRAY CHEST SINGLE VW, 10/24/2018, 10:13 AM. INDICATIONS:dyspnea, cough, o/e ronchi FINDINGS: LUNGS/PLEURA:No significant pulmonary parenchymal abnormalities. No effusions. VASCULATURE:Normal. Unremarkable pulmonary vasculature. CARDIAC:Normal. No cardiac silhouette abnormality or cardiomegaly. MEDIASTINUM:Normal. No visible mass or adenopathy. BONES:Normal. No fracture or visible bony lesion. OTHER:Negative. CONCLUSION:No acute disease. No significant change has occurred. Dictated by: Jhonatan Choe MD on 12/02/2018 at 07:03 PM
[2018-12-02 19:52] VITALS: BP 162/88
== END 2018-12-02 19:03 | disposition home or self-care (01) ==
LOC: ER 17:35
DX: J44.9 Chronic obstructive pulmonary disease, unspecified (principal); E11.9 Type 2 diabetes mellitus without complications; I50.9 Heart failure, unspecified; Z79.01 Long term (current) use of anticoagulants; Z79.4 Long term (current) use of insulin; Z79.82 Long term (current) use of aspirin; Z79.899 Other long term (current) drug therapy; Z88.8 Allergy status to other drugs, medicaments and biological substances; Z90.49 Acquired absence of other specified parts of digestive tract; Z90.710 Acquired absence of both cervix and uterus; Z87.891 Personal history of nicotine dependence
CPT/HCPCS: 36415; 71046; 80053; 82550; 83880; 84484; 85025; 85379; 85610; 85730; 86677; 93005; 94640; 99285; J1100; J7620; 99284

== ENCOUNTER → 2018-12-24 | Outpatient (CLI) | payer MEDICARE, OTHER ==
--- NOTE | 2018-12-24 16:42 | DIREP ---
PROCEDURE:XRAY SPINE THORACIC 3 VWS COMPARISON:None. INDICATIONS:M54.6 PAIN IN THORACIC SPINE TECHNIQUE:AP & lateral views of the thoracic spine and a swimmer's view of the cervicothoracic junction are provided. FINDINGS: ALIGNMENT:Normal. VERTEBRAE:Normal. DISK SPACES:Mild degenerative change with small amounts of osteophyte. OTHER:Post interventional changes of the coronary vessels, and valve. Atherosclerotic changes aorta CONCLUSION:Mild degenerative change. No fracture or malalignment Dictated by: Jhonatan Choe MD on 12/24/2018 at 04:40 PM
--- NOTE | 2018-12-24 16:45 | DIREP ---
PROCEDURE:XRAY SPINE LUMBAR 2-3 VWS COMPARISON:[facility], , XRAY SPINE LUMBAR 2-3 VWS, 03/12/2017, 03:42 PM. INDICATIONS:M54.5 LOW BACK PAIN TECHNIQUE:AP, lateral, and coned down lateral views of the lumbar spine are provided. FINDINGS: ALIGNMENT:Normal. VERTEBRAE:Normal. DISK SPACES:Disc degenerative change with disc height loss at the L5-S1 level. SPONDYLOLISTHESIS:None. SACROILIAC JOINTS:Normal. OTHER:Facet sclerosis and hypertrophy, predominantly at the L5-S1 level. Findings are similar to previous examination. Unchanged apparent renal stone. CONCLUSION:Degenerative changes, predominantly at the L5-S1 level. No acute findings, or significant interval change Dictated by: Jhonatan Choe MD on 12/24/2018 at 04:41 PM
== END | disposition home or self-care (01) ==
LOC: RAD 15:47
PROVIDERS: ATTEND Internal Medicine
DX: M47.817 Spondylosis without myelopathy or radiculopathy, lumbosacral region (principal); M47.814 Spondylosis without myelopathy or radiculopathy, thoracic region; M54.2 Cervicalgia
CPT/HCPCS: 72072; 72100

== ENCOUNTER → 2019-01-06 | Outpatient (CLI) | payer MEDICARE, OTHER ==
[2019-01-06 08:37] LABS: BASOPHIL % 0.3 % (0.0-0.2); EOSINOPHIL # 0.1 10^3/uL (0.0-0.2); EOSINOPHIL % 0.8 % (0.0-5.0); HEMOGLOBIN 10.1 g/dL (12.0-15.0); LYMPHOCYTES # 1.5 10^3/uL (1.0-4.8); LYMPHOCYTES % 19.4 % (24.0-44.0); MEAN CELL HGB 31.6 pg (26-34); MEAN CELL HGB CONCENTRATION 33.3 g/dL (33-37); MEAN CORP VOLUME 94.7 fL (78-100); MEAN PLATELET VOLUME 7.8 fL (7.8-11.0); MONOCYTES # 0.5 10^3/uL (0.3-0.8); MONOCYTES % 6.8 % (5.0-12.0); NEUTROPHIL # 5.7 10^3/uL (1.8-7.7); NEUTROPHILS % 72.2 % (41.0-85.0); RED CELL DISTRIBUTION WIDTH 14.3 % (11.5-14.5); WHITE BLOOD CELL 7.8 10^3/uL (4.5-11.0)
[2019-01-06 08:45] LABS: HEMOGLOBIN 10.1 g/dL (12.0-15.0); MEAN CELL HGB 31.9 pg (26-34); MEAN CELL HGB CONCENTRATION 33.6 g/dL (33-37); MEAN PLATELET VOLUME 7.9 fL (7.8-11.0); RED CELL DISTRIBUTION WIDTH 14.3 % (11.5-14.5)
[2019-01-06 08:48] LABS: BILIRUBIN,URINE NEGATIVE (NEGATIVE); UROBILINOGEN,URINE NORMAL (NEGATIVE)
[2019-01-06 08:51] LABS: CALCIUM 10.4 mg/dL (8.4-10.5); CARBON DIOXIDE 27.3 mmol/L (20.0-32)
[2019-01-06 09:32] LABS: APPEARANCE,URINE CLEAR (CLEAR); UA COLOR YELLOW (YELLOW)
[2019-01-06 09:36] LABS: CALCIUM 10.1 mg/dL (8.4-10.5); CARBON DIOXIDE 26.8 mmol/L (20.0-32)
[2019-01-07 07:28] LABS: THYROXINE (T4) TOTAL(REF) 7.6 ug/dL (4.5-12.0)
== END | disposition home or self-care (01) ==
LOC: LAB 08:05
PROVIDERS: ATTEND Internal Medicine
DX: D63.8 Anemia in other chronic diseases classified elsewhere (principal); M32.9 Systemic lupus erythematosus, unspecified; R82.90 Unspecified abnormal findings in urine; E87.4 Mixed disorder of acid-base balance; E87.1 Hypo-osmolality and hyponatremia; I50.22 Chronic systolic (congestive) heart failure; Z79.899 Other long term (current) drug therapy
CPT/HCPCS: 36415; 80048; 80053; 80061; 81000; 82043; 82306; 82607; 83930; 84300; 84436; 84443; 84480; 84550; 85025; 85027; 85610; 85651; 85730; 86140; 86376; 87086

== ENCOUNTER 2019-02-25 18:09 | Emergency (ER) | payer MEDICARE, OTHER ==
[~2019-02-25] VITALS: Ht 165.1 cm; Wt 56.7 kg
[~2019-02-25 18:09] MED LIST changes: +CYAN-26 PO; -CYAN10005 PO
[2019-02-25] MEDS ORDERED: MORPHINE SULFATE IV STA (18:15)
[2019-02-25] MEDS ORDERED: NEXTERONE ONE ×2 (18:15→18:33)
[2019-02-25] MEDS ORDERED: NEXTERONE 360 MG/200 ML BAG 200 ML IV ONE ×3 (18:15→20:49)
[2019-02-25 18:20] VITALS: BP 147/99
[2019-02-25] MEDS ORDERED: NS 100ML 100 ML IV ONE ×2 (18:21→18:33)
[2019-02-25] MEDS ORDERED: DUONEB 0.5 MG-3 MG/3 ML SOLN IH STA (18:28)
[2019-02-25] MEDS ORDERED: DECADRON IH STA (18:28)
--- NOTE | 2019-02-25 18:28 | ER.PDOC ---
General Chief Complaint: Chest Pain-Cardiac Nature Stated Complaint: dyspnea Time seen by MD: 18:33 Source: patient Exam Limitations: clinical condition History of Present Illness Initial Comments PATIENT GIV Timing/Duration: 4-6 hours Severity: severe Activities at Onset: activity/exertion Prior Episodes/Possible Cause: frequent episodes, chronic episodes Modifying Factors: improves with activity, improves with albuterol inhaler, improves with coughing, improves with lying down, improves with oxygen, improves with rest Associated Symptoms: chest pain, weakness, wheezing Allergies: Coded Allergies: prednisone (Verified Allergy, Unknown, 12/30/16) Home Meds Active Scripts Metformin Hcl (GLUCOPHAGE) 500 Mg Tablet, 500 MG PO BID for 30 Days Prov:RODERICK WILLARD MD 10/16/17 Budesonide (PULMICORT) 0.5 Mg/2 Ml Ampul.neb, 0.5 MG IH Q6HR PRN for SHORTNESS OF BREATH for 30 Days Prov:RODERICK WILLARD MD 10/16/17 Alprazolam (ALPRAZOLAM) 0.5 Mg Tablet, 1 MG PO HS PRN for anxiety for 30 Days, TABLET Prov:RODERICK WILLARD MD 10/16/17 Sacubitril/Valsartan (Entresto 49 mg-51 mg Tablet) 1 Each Tablet, 1 EACH PO BID for 30 Days, TABLET Prov:RODERICK WILLARD MD 10/16/17 Levalbuterol Hcl (LEVALBUTEROL CONCENTRATE) 1.25 Mg/0.5 Ml Vial.neb, 1.25 MG IH Q6HR PRN for SHORTNESS OF BREATH for 30 Days Prov:RODERICK WILLARD MD 10/16/17 Spironolactone 25MG (ALDACTONE 25MG) 25 Mg Tablet, 25 MG PO DAILY for 30 Days, TABLET Prov:RODERICK WILLARD MD 09/29/17 Isosorbide Mononitrate (ISOSORBIDE MONONITRATE ER) 30 Mg Tab.er.24h, 60 MG PO DAILY for 30 Days Prov:RODERICK WILLARD MD 09/29/17 Furosemide (LASIX) 20 Mg Tablet, 20 MG PO DAILY for 30 Days Prov:RODERICK WILLARD MD 06/11/17 Insulin Detemir (LEVEMIR) 100 Unit/1 Ml Vial, 30 UNIT SQ HS for 30 Days, VIAL Prov:RODERICK WILLARD MD 12/31/16 Lancets (ACCU-CHEK) 1 Each Each, 1 EACH ACHS for 30 Days, EACH Prov:RODERICK WILLARD MD 12/31/16 Reported Medications Pramipexole Di-Hcl (MIRAPEX) 0.125 Mg Tablet, 0.125 MG PO DAILY24, TABLET 05/18/18 Metoprolol Tartrate 25MG (LOPRESSER 25MG) 25 Mg Tablet, 1 TAB PO BID, #180 TAB 1 Refill 05/18/18 Apixaban (Eliquis) 5 Mg Tablet, 5 MG PO BID, TABLET 05/18/18 Roflumilast (DALIRESP) 500 Mcg Tablet, 1 TAB PO DAILY, #90 TAB 3 Refills 05/18/18 Latanoprost (LATANOPROST) 2.5 Ml Drops, 1 DROP OP HS, #7.5 MILLILITER 3 Refills 02/05/18 Clopidogrel Bisulfate (CLOPIDOGREL) 75 Mg Tablet, 1 TAB PO DAILY, #90 TAB 1 Refill 02/05/18 Citalopram Hydrobromide (CITALOPRAM HBR) 20 Mg Tablet, 1 TAB PO DAILY, #30 TAB 5 Refills 02/05/18 Mometasone Furoate (ASMANEX) 220 Mcg Aer.pow.ba, 220 MCG IH DAILY24 02/05/18 Cyanocobalamin (Vitamin B-12) (VITAMIN B-12) 1,000 Mcg Tablet, 1 TAB PO DAILY, #30 TAB 2 Refills 12/31/16 Biotin (BIOTIN) 1 Mg Tablet, 1 MG PO TID, TABLET 12/31/16 Cholecalciferol (Vitamin D3) (VITAMIN D) 2,000 Unit Capsule, 4000 UNIT PO DAILY, CAPSULE 12/31/16 Potassium Chloride (KLOR-CON M20) 20 Meq Tab.er.prt, 20 MEQ PO DAILY 12/31/16 Rosuvastatin 10MG (CRESTOR 10MG) 10 Mg Tablet, 10 MG PO HS, TAB 12/30/16 Pantoprazole Sodium (PANTOPRAZOLE SODIUM) 40 Mg Tablet.dr, 40 MG PO DAILY 12/30/16 Nitroglycerin (NITROSTAT) 0.4 Mg Tab.subl, 0.4 MG SL PRN PRN for CHEST PAIN 12/30/16 Latanoprost (LATANOPROST) 2.5 Ml Drops, 1 DROP OP HS, #7.5 MILLILITER 12/30/16 Ferrous Sulfate (FERROUS SULFATE) 325 Mg Tablet, 325 TAB PO DAILY, TAB 12/30/16 Aspirin (ASPIR 81) 81 Mg Tablet.dr, 1 TAB PO DAILY, TAB 12/30/16 Umeclidinium Brm/Vilanterol Tr (Anoro Ellipta 62.5-25 Mcg INH) 1 Each Disk.w.dev, 1 EACH IH DAILY 12/30/16 Past Medical History Medical History: coronary artery disease, cardiac problems, congestive heart failure, diabetes Surgical History: cardiac cath, cholecystectomy, , hysterectomy, stent, other LMP (females 10-50): postmenopause Social History Smoking: non-smoker Alcohol Use: none Drug Use: none Reviewed Nursing Reviewed: Vital Signs, Abn. Noted Review of Systems Constitutional: see HPI, diaphoresis EENTM: see HPI Respiratory: orthopnea, shortness of breath, wheezing, other Cardiovascular: chest pain Gastrointestinal: no symptoms reported Genitourinary: no symptoms reported Musculoskeletal: no symptoms reported Skin: no symptoms reported Psychiatric/Neurological: no symptoms reported Endocrine: no symptoms reported Hematologic/Lymphatic: no symptoms reported All Other Systems: Reviewed and Negative Physical Exam General Appearance: Moderate Distress HEENT: PERRL/EOMI, Normal ENT Inspection, TMs Normal, Pharynx Normal Neck: Non-Tender, Full Range of Motion, Supple, Normal Inspection Respiratory: respiratory distress, decreased breath sounds, accessory muscle use, crackles, rales, retractions, rhonchi Cardiovascular: Tachycardia Gastrointestinal: Normal Bowel Sounds, No Organomegaly, No Pulsatile Mass, Non Tender, Soft Extremities: Normal Range of Motion, Non-Tender, Normal Inspection, No Pedal Edema, No Calf Tenderness, Normal Capillary Refill Neurologic/Psychiatric: 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 Intubation Intubation : Intubation Method: orotracheal Blade: curved Tube Size (cm): 7.5 Breath Sounds after Intubation: equal Results/Orders Results/Orders Orders - RENÉ MEDEIROS DO Propofol/Pf (Diprivan) (02/25/19 20:38) Amiodarone In Dextrose,Iso-Osm (Nexteron (02/25/19 20:49) Urinalysis (02/25/19 22:25) Urine Culture (02/25/19 20:00) Vital Signs Date Time Temp Pulse Resp B/P (MAP) Pulse Ox O2 Delivery O2 Flow Rate FiO2 02/25/19 21:32 99.0 116 14 90 Vent 02/25/19 21:10 116 14 142/77 (98) 90 Vent 02/25/19 20:30 115 14 131/80 (97) 92 Vent 02/25/19 19:20 111 14 119/89 (99) 92 Vent 02/25/19 18:33 142 42 90 02/25/19 18:32 144 42 89 02/25/19 18:20 99.0 141 30 147/99 (115) 92 Bi Pap 99.0 02/25/19 18:17 99.0 141 30 96 Bi Pap 99.0 02/25/19 18:13 141 30 Administered Medications Medications (Trade) Dose Ordered Sig/Dayanara Route PRN Reason Start Time Stop Time Status Last Admin Dose Admin Albuterol/ Ipratropium (Duoneb 0.5 Mg-3 Mg/3 ml Soln) 3 ml STAT STAT IH 02/25/19 18:28 02/25/19 21:34 DC 02/25/19 18:31 3 ML Amiodarone HCl (Nexterone) 150 mg OT ONCE IV 02/25/19 18:30 02/25/19 18:31 DC 02/25/19 18:25 150 MG Amiodarone HCL/ Dextrose 200 ml @ 17 mls/hr OT IV 02/25/19 19:30 02/25/19 21:34 DC 02/25/19 20:13 17 MLS/HR Dexamethasone Sodium Phosphate (Decadron) 4 mg STAT STAT IH 02/25/19 18:28 02/25/19 21:34 DC 02/25/19 18:31 4 MG Morphine Sulfate (Morphine Sulfate) 4 mg STAT STAT IV 02/25/19 18:15 02/25/19 18:18 DC 02/25/19 18:49 4 MG Propofol (Diprivan) 100 mg PRN STAT IV 02/25/19 18:40 02/25/19 20:20 DC 02/25/19 18:50 100 MG Propofol (Diprivan) 1,000 mg STAT STAT IV 02/25/19 20:38 02/25/19 20:39 DC 02/25/19 21:20 1,000 MG Vecuronium [place] (Norcuron) 10 mg STAT STAT IV 02/25/19 19:06 02/25/19 20:20 DC 02/25/19 19:06 10 MG Laboratory Tests Test 02/25/19 18:19 02/25/19 19:17 02/25/19 19:21 02/25/19 20:00 Blood Gas Sample Site RB RB Blood pH 7.100 (7.350-7.450) 7.184 (7.350-7.450) Blood Gas PCO2 55.1 mmHg (35.0-45.0) H 48.1 mmHg (35.0-45.0) H Blood Gas PO2 80.8 mmHg (80.0-100.0) 132.6 mmHg (80.0-100.0) H Blood Gas HCO3 16.7 mmol/L (22.0-26.0) L 17.7 mmol/L (22.0-26.0) L Blood Gas Base Excess -13.1 mmol/L (-2.0-2.0) L -10.4 mmol/L (-2.0-2.0) L Harvey Test N/A N/A Arterial Blood Oxygen Saturation 90.1 % (94.0-97.00) L 97.7 % (94.0-97.00) H Deoxyhemoglobin 9.8 % (0.0-5.0) H 2.2 % (0.0-5.0) Carboxyhemoglobin 0.8 % (0.0-3.9) 2.4 % (0.0-3.9) Methemoglobin 0.4 % (0.00-5.0) 0.4 % (0.00-5.0) Total Hemoglobin 13.5 % (12.0-17.8) 13.0 % (12.0-17.8) Total Oxygen Concentration 17.0 % (13.5-17.5) 17.6 % (13.5-17.5) H Lactic Acid (Blood Gas) 4.5 mmol/1 (0.50-2.0) *H 3.3 mmol/1 (0.50-2.0) H Blood Gas Temperature 37 37 Oxygen Delivery Method BIPAP VENT Blood Gas Vent Mode ST SIMV Blood Gas Vent Rate 14 14 FiO2 75 % (20-101) 100 % (20-101) Blood Gas PEEP 7 CMH2O 5 CMH2O Blood Gas Pressure Support 14 CMH2O 10 CMH2O Bicarbonate 18.4 mmol/L (23-27) L 19.2 mmol/L (23-27) L White Blood Count 14.5 10^3/uL (4.5-11.0) H Red Blood Count 3.91 10^6/uL (4.00-5.20) L Hemoglobin 12.0 g/dL (12.0-15.0) Hematocrit 37.3 % (36.0-46.0) Mean Corpuscular Volume 95.4 fL (78-100) Mean Corpuscular Hemoglobin 30.7 pg (26-34) Mean Corpuscular Hemoglobin Concent 32.2 g/dL (33-37) L Red Cell Distribution Width 14.6 % (11.5-14.5) H Platelet Count 496 10^3/uL (150-400) H Mean Platelet Volume 8.4 fL (7.8-11.0) Neutrophils (%) (Auto) 80.8 % (41.0-85.0) Lymphocytes (%) (Auto) 14.2 % (24.0-44.0) L Monocytes (%) (Auto) 3.7 % (5.0-12.0) L Neutrophils # (Auto) 11.7 10^3/uL (1.8-7.7) H Lymphocytes # (Auto) 2.1 10^3/uL (1.0-4.8) Monocytes # (Auto) 0.5 10^3/uL (0.3-0.8) Absolute Immature Granulocyte (auto 0.06 10^3 u/L (0-2) Immature Granulocytes % 0.40 % (0.00-0.50) Eosinophils % 0.6 % (0.0-5.0) Basophils % 0.3 % (0.0-0.2) H Basophils # 0.0 10^3/uL (0.0-0.1) Eosinophil Count 0.1 10^3/uL (0.0-0.2) Prothrombin Time 11.0 SEC (9.8-11.9) Prothrombin Time INR (Non-Therap) 1.1 PTT 29.3 SEC (24.67-30.72) D-Dimer 2.95 mg/L (0.19-0.49) *H Sodium Level 136 mmol/L (132-145) Potassium Level 4.6 mmol/L (3.6-5.2) Chloride Level 103.0 mmol/L (96-109) Carbon Dioxide Level 17.4 mmol/L (20.0-32) L Anion Gap 20.2 Blood Urea Nitrogen 16 mg/dL (7-18) Creatinine 1.31 mg/dL (0.59-1.40) Estimated GFR () 48.4 (>/=60) BUN/Creatinine Ratio 12.0 Glucose Level 414 mg/dL (70-110) *H Calcium Level 8.2 mg/dL (8.4-10.5) L Total Bilirubin 0.2 mg/dL (0.2-1.0) Aspartate Amino Transferase (AST) 16 U/L (0-35) Alanine Aminotransferase (ALT) 9 U/L (12-78) L Alkaline Phosphatase 100 U/L (50-136) Total Creatine Kinase 44 U/L (26-192) Troponin I 0.15 ng/mL (0.00-0.05) H Pro-B-Type Natriuretic Peptide 1059 pg/mL (0-125) H Total Protein 6.8 g/dL (6.4-8.2) Albumin 2.8 g/dL (3.4-5.0) L Globulin 4.0 Helicobacter pylori Screen NEGATIVE (NEGATIVE) Blood Gas Tidal Volume 400 ML Urine Collection Type CATH Urine Color YELLOW (YELLOW) Urine Appearance CLOUDY (CLEAR) H Urine Bilirubin NEGATIVE MG/DL (NEGATIVE) Urine Ketones NEGATIVE (NEGATIVE) Urine Specific [place] 1.015 (1.005-1.035) Urine pH 5.0 (5.0-6.0) Urine Protein 2+ (NEGATIVE) H Urine Urobilinogen NEGATIVE (NEGATIVE) Urine Nitrate NEGATIVE (NEGATIVE) Urine Leukocyte Esterase 1+ (NEGATIVE) Urine Blood 10 TR (NEGATIVE) H Urine RBC 0-2 RBC/HPF (NONE SEEN) Urine WBC 5-10 WBC/HPF (0-2) H Urine Squamous Epithelial Cells RARE #/HPF (FEW) Urine Amorphous Sediment SMALL (NONE SEEN) Urine Bacteria FEW (NONE SEEN) H Urine Yeast FEW Urine Glucose 250 (NEGATIVE) H Progress Progress DR MEDEIROS TO ME AT 1920, CHART REVIEWED, PATIENT INTUBATED, LABS PENDING, PATIENT CARD IS DR GARCIA, WANTS HER TO GO TO [facility], NO NOISE ABATEMENT ENGINEER. EKG/XRAY/CT/US EKG Comments: A FIB RAPID VENT RATE. XRAY Comments: CHEST -ET TUBE GOOD PLACEMENT Consult/PCP Time Consult/PCP Called: 19:32 Consult/PCP: DR HARMON, NEED NOISE ABATEMENT ENGINEER, FAMILY DONT WANT LOCAL NOISE ABATEMENT ENGINEER. #2 Time Consult/PCP Called: 20:11 Consult/PCP: BREN WATERMAN [facility], TRANSFER TO DR RECIO [facility] ED. Course Sepsis Screening Results: Posi: POSITIVE SEPSIS RISK Sepsis Qualifier/Stage: NO DEFINITE RISK Duration or Total Time Spent w: 2 hrs Vitals & review Data Vital Sign - Last 24 Hours 02/25/19 02/25/19 02/25/19 02/25/19 18:13 18:17 18:20 18:32 Temp 99.0 99.0 99.0 99.0 Pulse 141 141 141 144 Resp 30 30 30 42 B/P (MAP) 147/99 (115) Pulse Ox 96 92 89 O2 Delivery Bi Pap Bi Pap 02/25/19 02/25/19 02/25/19 02/25/19 18:33 19:20 20:30 21:10 Pulse 142 111 115 116 Resp 42 14 14 14 B/P (MAP) 119/89 (99) 131/80 (97) 142/77 (98) Pulse Ox 90 92 92 90 O2 Delivery Vent Vent Vent 02/25/19 21:32 Temp 99.0 Pulse 116 Resp 14 Pulse Ox 90 O2 Delivery Vent Intake and Output 02/25/19 02/25/19 02/26/19 15:00 23:00 07:00 Output Total 100 ml Balance -100 ml Laboratory Tests Test 02/25/19 18:19 02/25/19 19:17 02/25/19 19:21 02/25/19 20:00 Blood Gas Sample Site RB RB Blood Gas pH 7.100 7.184 Blood Gas PCO2 55.1 mmHg 48.1 mmHg Blood Gas PO2 80.8 mmHg 132.6 mmHg Blood Gas HCO3 16.7 mmol/L 17.7 mmol/L Blood Gas Base Excess -13.1 mmol/L -10.4 mmol/L Harvey Test N/A N/A Arterial Blood Oxygen Saturation 90.1 % 97.7 % Deoxyhemoglobin 9.8 % 2.2 % Carboxyhemoglobin 0.8 % 2.4 % Methemoglobin 0.4 % 0.4 % Total Hemoglobin 13.5 % 13.0 % Total Oxygen Concentration 17.0 % 17.6 % Lactic Acid (Blood Gas) 4.5 mmol/1 3.3 mmol/1 Blood Gas Temperature 37 37 Oxygen Delivery Method (LAB) BIPAP VENT Blood Gas Vent Mode ST SIMV Blood Gas Vent Rate 14 14 FiO2 75 % 100 % Blood Gas PEEP 7 CMH2O 5 CMH2O Blood Gas Pressure Support 14 CMH2O 10 CMH2O Bicarbonate 18.4 mmol/L 19.2 mmol/L White Blood Count 14.5 10^3/uL Red Blood Count 3.91 10^6/uL Hemoglobin 12.0 g/dL Hematocrit 37.3 % Mean Corpuscular Volume 95.4 fL Mean Corpuscular Hemoglobin 30.7 pg Mean Corpuscular Hemoglobin Concent 32.2 g/dL Red Cell Distribution Width 14.6 % Platelet Count 496 10^3/uL Mean Platelet Volume 8.4 fL Neutrophils (%) (Auto) 80.8 % Lymphocytes (%) (Auto) 14.2 % Monocytes (%) (Auto) 3.7 % Neutrophils # (Auto) 11.7 10^3/uL Lymphocytes # (Auto) 2.1 10^3/uL Monocytes # (Auto) 0.5 10^3/uL Absolute Immature Granulocyte (auto 0.06 10^3 u/L Immature Granulocytes % 0.40 % Eosinophils % 0.6 % Basophils % 0.3 % Basophils # 0.0 10^3/uL Eosinophil Count 0.1 10^3/uL Prothrombin Time 11.0 SEC Prothrombin Time INR (Non-Therap) 1.1 Activated Partial Thromboplast Time 29.3 SEC D-Dimer 2.95 mg/L Sodium Level 136 mmol/L Potassium Level 4.6 mmol/L Chloride Level 103.0 mmol/L Carbon Dioxide Level 17.4 mmol/L Anion Gap 20.2 Blood Urea Nitrogen 16 mg/dL Creatinine 1.31 mg/dL Estimated GFR () 48.4 BUN/Creatinine Ratio 12.0 Glucose Level 414 mg/dL Calcium Level 8.2 mg/dL Total Bilirubin 0.2 mg/dL Aspartate Amino Transf (AST/SGOT) 16 U/L Alanine Aminotransferase (ALT/SGPT) 9 U/L Alkaline Phosphatase 100 U/L Total Creatine Kinase 44 U/L Troponin I 0.15 ng/mL Pro-B-Type Natriuretic Peptide 1059 pg/mL Total Protein 6.8 g/dL Albumin 2.8 g/dL Globulin 4.0 Helicobacter pylori Screen NEGATIVE Blood Gas Tidal Volume 400 ML Urine Collection Type CATH Urine Color YELLOW Urine Appearance CLOUDY Urine Bilirubin NEGATIVE MG/DL Urine Ketones NEGATIVE Urine Specific [place] 1.015 Urine pH 5.0 Urine Protein 2+ Urine Urobilinogen NEGATIVE Urine Nitrate NEGATIVE Urine Leukocyte Esterase 1+ Urine Blood 10 TR Urine RBC 0-2 RBC/HPF Urine WBC 5-10 WBC/HPF Urine Squamous Epithelial Cells RARE #/HPF Urine Amorphous Sediment SMALL Urine Bacteria FEW Urine Yeast FEW Urine Glucose 250 Sepsis Infection Criteria Pres: None LEVEL 1 SEPSIS INFECTION CRITE: None/Not assessed LEVEL 2-SIRS (LIST ALL THAT AP: None/Not assessed Cardiovascular Evidence: Not Assessed or None Hematologic Evidence: None/Not assessed Hepatic Evidence: None/Not assessed Metabolic Evidence: None/Not assessed Neurological Evidence: None/Not assessed Respiratory Evidence: Need for O2 to keep>90%, O2 SAT<90room air Renal Evidence: None/Not assessed O2 Sat by Pulse Oximetry: 92 Departure Time of Disposition: 21:30 Disposition: 70 DISC/XFER TO [facility] Impression: Primary Impression: Acute respiratory failure requiring reintubation Additional Impressions: Congestive heart failure (CHF) Unstable angina Condition: Critical Referrals: RHONDA ALVAREZ MD (PCP) PRIMARY CARE PROVIDER Duration or Time Spent with Pa: 60 MIN Critical Care Note Total Time (mins): 60 Problem Qualifiers LAVON BETH MD Feb 25, 2019 18:28 RENÉ MEDEIROS DO Feb 25, 2019 19:34
[2019-02-25] MEDS ORDERED: NEXTERONE IV ONE (18:30)
--- NOTE | 2019-02-25 18:31 | NUR ---
ARRIVAL PATIENT ARRIVED TO ED2 VIA GURNEY BY [facility], EMS CALLED TO [facility] FOR DYSPNEA AND CHEST PAIN, PATIENT HAS HAD CHEST PAIN THAT RADIATES TO HER JAW. EMS STATES PATIENT HEART RATE WAS IN THE 150'S ON THEIR ARRIVAL, 20G TO RIGHT FOREARM, GAVE CARDIZEM 15MG, LASIX 40MG, AND ASPIRIN 324 APPLICATION SUPPORT MANAGER. PATIENT CONNECTED TO COMPRESSOR STATION ENGINEER CHIEF AND VITAL SIGN OBTAINED. C-PAP IN PLACE, DOCTOR IGNACIA AND RESPIRATORY AT BEDSIDE.
[2019-02-25] MEDS ORDERED: DIPRIVAN IV STA ×2 (18:40→20:38)
--- NOTE | 2019-02-25 18:40 | NUR ---
STATUS VERBAL ORDERS FROM DR. BETH FOR MORPHINE 4MG, DIPROVAN 100MG FOR INTUBATION, AND 10MG OF VECURONIUM. 1850 50MG OF DIPROVAN PUSHED BY DR. BETH ATTEMPT X1 FOR INTUBATION BY ERASMO RT WITHOUT SUCCESS. 1852 DIPROVAN 50MG GIVEN IVP BY DR. BETH. ATTEMPT TO INTUBATE BY DR. BETH WITHOUT SUCCESS. 1903 INTUBATION COMPLETE ON 3RD ATTEMPT BY MATHEW MULLINS. ET SIZE 7 AT 22 AT LIP SECURED BY RT. OG TUBE PLACED BY RT. 10MG VECURONIUM ADMINISTERED IVP. 1920 EKG, ABG, AND LAB OBTAINED PATIENT PLACED ON VENT TV 400, PEEP 5, RATE 14, AND FIO2 AT 100%. 1930 QUINN 16F PLACED USING STERILE TECHNIQUE UA OBTAINED.
[2019-02-25] MEDS ORDERED: DIPRIVAN 100 ML IV ONE (18:42)
[2019-02-25] MEDS ORDERED: NORCURON IV STA (19:06)
[2019-02-25 19:20] VITALS: BP 119/89
--- NOTE | 2019-02-25 19:26 | PCM.EKG ---
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
[2019-02-25 19:30] LABS: BASOPHIL % 0.3 % (0.0-0.2); EOSINOPHIL # 0.1 10^3/uL (0.0-0.2); EOSINOPHIL % 0.6 % (0.0-5.0); LYMPHOCYTES # 2.1 10^3/uL (1.0-4.8); LYMPHOCYTES % 14.2 % (24.0-44.0); MEAN CELL HGB 30.7 pg (26-34); MEAN CELL HGB CONCENTRATION 32.2 g/dL (33-37); MEAN CORP VOLUME 95.4 fL (78-100); MEAN PLATELET VOLUME 8.4 fL (7.8-11.0); MONOCYTES # 0.5 10^3/uL (0.3-0.8); MONOCYTES % 3.7 % (5.0-12.0); NEUTROPHIL # 11.7 10^3/uL (1.8-7.7); NEUTROPHILS % 80.8 % (41.0-85.0); RED CELL DISTRIBUTION WIDTH 14.6 % (11.5-14.5); WHITE BLOOD CELL 14.5 10^3/uL (4.5-11.0)
[2019-02-25] MEDS ORDERED: NEXTERONE 360 MG/200 ML BAG 200 ML IV SCH (19:30)
--- NOTE | 2019-02-25 19:32 | NUR ---
Hany Benitez on phone with Dr. Leach
--- NOTE | 2019-02-25 19:32 | PCM.EKG ---
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
--- NOTE | 2019-02-25 19:37 | NUR ---
Update Patients states that he does not want Dr. Mooney called. Dr. Benitez will call her carpenter railcar
[2019-02-25 19:41] LABS: ABG PCO2 55.1 mmHg (35.0-45.0); BE(B) -13.1 mmol/L (-2.0-2.0); HCO3act 16.7 mmol/L (22.0-26.0); pO2 80.8 mmHg (80.0-100.0)
--- NOTE | 2019-02-25 19:41 | DIREP ---
PROCEDURE:CHEST 1 VIEW COMPARISON:[facility], CR, XRAY CHEST 2 VWS, 12/02/2018, 05:56 PM. INDICATIONS:POST INTUBATION FINDINGS: LUNGS/PLEURA:The ET tube is approximately 4.3 cm from the chintan, just proximal to the arch of the aorta. NG tube identified in the stomach. EKG leads noted. The lungs are hyperexpanded. Diffuse interstitial prominence, question fluid overload/mild heart failure. The appearance is not typical of bilateral pneumonia which tends to be focal. VASCULATURE:Prominent vascularity and interstitium. CARDIAC:Normal. No cardiac silhouette abnormality or cardiomegaly. MEDIASTINUM:Normal. No visible mass or adenopathy. BONES:Normal. No fracture or visible bony lesion. OTHER:Negative. CONCLUSION:ET tube is at the level of the arch of the aorta, 4.3 cm from the chintan. NG tube noted. COPD with prominence vascularity and interstitium, question fluid overload/mild CHF. No large effusions are seen. Dictated by: Dez Park MD on 02/25/2019 at 07:39 PM
[2019-02-25 19:45] LABS: ABG PCO2 48.1 mmHg (35.0-45.0); ABG PH 7.184 (7.350-7.450); HCO3act 17.7 mmol/L (22.0-26.0); pO2 132.6 mmHg (80.0-100.0)
[2019-02-25 19:46] LABS: BE(B) -10.4 mmol/L (-2.0-2.0)
[2019-02-25 20:01] LABS: CALCIUM 8.2 mg/dL (8.4-10.5); CARBON DIOXIDE 17.4 mmol/L (20.0-32)
--- NOTE | 2019-02-25 20:08 | NUR ---
[facility] Dr. Benitez on phone with [facility] transfer line
--- NOTE | 2019-02-25 20:13 | NUR ---
[facility] dispatch is checking on availability of [facility], will call back with updates
--- NOTE | 2019-02-25 20:16 | NUR ---
[facility] patient. Will be here within 30 minutes for transfer
[2019-02-25 20:30] VITALS: BP 131/80
--- NOTE | 2019-02-25 20:34 | NUR ---
UPDATE DR. MEDEIROS ASKING IF PATIENT RECEIVED ASA. PER EMS REPORT SHEET THEY GAVE PATIENT 324 ASA, 15MG CARDIZEM, AND 40MG LASIX [employer] WORK[employer] TO ED.
--- NOTE | 2019-02-25 20:48 | NUR ---
[facility] at patients bedside getting patient ready for transfer
--- NOTE | 2019-02-25 21:09 | NUR ---
REPORT REPORT CALLED TO LUPE RAI AT [facility].
[2019-02-25 21:10] VITALS: BP 142/77
--- NOTE | 2019-02-25 21:30 | NUR ---
DEPART PATIENT DEPARTED WITH [facility] TRANSFER TO [facility] ER
[2019-02-25 21:32] VITALS: BP 142/77
--- NOTE | 2019-02-25 22:11 | NUR ---
Pt intubated in ER by RT. Placed on vent on SIMV 14 400VT PS10 PEEP 5cm 100% o2. O2 decreased to 95% following ABG. Pt transferred to A via [facility] at 2130. Addendum: 02/25/19 at 2214 by Amanda Phan NETWORK OPERATIONS ANALYST RT Amended: Links added.
[2019-02-25 22:30] LABS: UA COLOR YELLOW (YELLOW)
[2019-02-25 22:32] LABS: BILIRUBIN,URINE NEGATIVE (NEGATIVE); UROBILINOGEN,URINE NEGATIVE (NEGATIVE)
[2019-02-25 22:47] LABS: APPEARANCE,URINE CLOUDY (CLEAR)
[2019-02-25 22:48] LABS: YEAST,URINE FEW
[2019-02-26] MEDS ORDERED: NORCURON ONE (11:26)
== END 2019-02-25 21:30 | disposition other institution (70) ==
LOC: ER 18:09 → EDBD 18:09 → ER 21:30
DX: J96.00 Acute respiratory failure, unspecified whether with hypoxia or hypercapnia (principal); I50.9 Heart failure, unspecified; I25.110 Atherosclerotic heart disease of native coronary artery with unstable angina pectoris; E11.9 Type 2 diabetes mellitus without complications; Z79.01 Long term (current) use of anticoagulants; Z79.4 Long term (current) use of insulin; Z79.82 Long term (current) use of aspirin; Z79.899 Other long term (current) drug therapy; Z88.8 Allergy status to other drugs, medicaments and biological substances; Z90.49 Acquired absence of other specified parts of digestive tract; Z90.710 Acquired absence of both cervix and uterus; Z95.5 Presence of coronary angioplasty implant and graft; Z95.818 Presence of other cardiac implants and grafts
CPT/HCPCS: 31500; 36415; 36600 ×2; 51702; 71045; 80053; 81000; 82550; 82803 ×2; 83880; 84484; 85025; 85379; 85610; 85730; 86677; 87086; 93005 ×2; 94640; 96365; 96375; 99291; A4338; J0282 ×3; J7050 ×2; 83605; J3490